=== PATIENT | male | born 1990 | race Caucasian/White ===

== ENCOUNTER 2022-04-28 19:16 | Emergency (ER) | payer OTHER ==
[2022-04-28 19:47] VITALS: BP 135/80; PULSE 88; TEMP 98.6; BMI 36.9
[2022-04-28] MEDS ORDERED: ACETAMINOPHEN 500 MG TABLET (FP) PO ONE (22:25)
[2022-04-28] MEDS ORDERED: ACETAMINOPHEN 500 MG TABLET (FP) ONE (22:27)
== END 2022-04-29 00:25 | disposition home or self-care (01) ==
LOC: JERFT 19:16 → JER 19:16
DX: R51.9 Headache, unspecified (principal); M54.2 Cervicalgia; M79.601 Pain in right arm; Y04.0XXA Assault by unarmed brawl or fight, initial encounter
CPT/HCPCS: 70450-TC; 72125-TC; 73090-TC-RT-FY; 73110-TC-RT-FY; 73130-TC-RT-FY; 99284-25